=== PATIENT | male | born 1960 | race Caucasian/White ===

== ENCOUNTER → 2017-08-16 | Outpatient (CLI) | payer MEDICAID | END | disposition home or self-care (01) | LOC: CFH 12:10 | PROVIDERS: ATTEND Nurse Practitioner | DX: M51.24 Other intervertebral disc displacement, thoracic region (principal); M51.34 Other intervertebral disc degeneration, thoracic region | CPT/HCPCS: 72146 ==

== ENCOUNTER → 2017-08-30 | Outpatient (CLI) | payer MEDICAID ==
[~2017-08-30] MED LIST: GADOBUTROL 10 MMOL/10 ML PFS ONE
== END | disposition home or self-care (01) ==
LOC: CFH 07:48
PROVIDERS: ATTEND Nurse Practitioner
DX: M54.6 Pain in thoracic spine (principal)
CPT/HCPCS: 72147; A9585

== ENCOUNTER → 2017-10-02 | Outpatient (CLI) | payer MEDICAID | END | disposition home or self-care (01) | LOC: CFH 13:49 | PROVIDERS: ATTEND Nurse Practitioner | DX: M16.0 Bilateral primary osteoarthritis of hip (principal) | CPT/HCPCS: 73523 ==

== ENCOUNTER → 2018-10-15 | Outpatient (CLI) | payer MEDICAID | END | disposition home or self-care (01) | LOC: CFH 12:59 | PROVIDERS: ATTEND Nurse Practitioner | DX: G93.89 Other specified disorders of brain (principal); J34.1 Cyst and mucocele of nose and nasal sinus | CPT/HCPCS: 70551 ==

== ENCOUNTER 2020-03-12 14:19 | Emergency (ER) | payer MEDICAID ==
[~2020-03-12] VITALS: Ht 175.3 cm; Wt 115.1 kg
[2020-03-12] MEDS ORDERED: OMNIPAQUE 350 MG/ML, 100ML BOTTLE ONE (20:00)
--- NOTE | 2020-03-12 20:10 | NUR ---
PT CAME IN CO OF LEFT SHOULDER AND ABD PAIN AFTER FALLING OFF THE BACK OF HIS TRUCK ABOUT "4.5 FEET HIGH" HE SAID. X RAYS COMPELTE. PT TO CT AT THIS TIME
[2020-03-12 20:15] LABS: BASOPHILS % (AUTO) 1 % (0-1); EOSINOPHILS % (AUTO) 3 % (1-7); LYMPHOCYTES % (AUTO) 36 % (22-44); MEAN CORPUSCULAR HEMOGLOBIN 30.9 pg (27.5-34.5); MEAN CORPUSCULAR HGB CONC 33.6 g/dL (33.2-36.2); MEAN PLATELET VOLUME 7.8 fL (7.4-10.4); MONOCYTES % (AUTO) 10 % (2-9); NEUTROPHILS % (AUTO) 50 % (42-75); PLATELET COUNT 220 x10^3/uL (130-400); RED BLOOD COUNT 4.96 x10^6/uL (4.38-5.82); RED CELL DISTRIBUTION WIDTH 13.2 % (9.4-14.8)
[2020-03-12 20:22] LABS: ALANINE AMINOTRANSFERASE 62 U/L (12-78); ALBUMIN 4.1 g/dL (3.4-5.0); ANION GAP 3 mmol/L (5-15); CALCIUM 8.8 mg/dL (8.5-10.1); CHLORIDE 110 mmol/L (98-107); CREATININE 0.86 mg/dL (0.7-1.3)
[2020-03-12 20:24] LABS: ALKALINE PHOSPHATASE 114 U/L (45-117); BILIRUBIN,TOTAL 0.6 mg/dL (0.2-1.0); TOTAL PROTEIN 7.4 g/dL (6.4-8.2)
[2020-03-12 20:25] LABS: MD NO
[2020-03-12 20:58] VITALS: BP 134/76
--- NOTE | 2020-03-12 21:02 | NUR ---
Patient given discharge instructions and they have confirmed that they understand the instructions. Patient ambulatory with steady gait. nad, denies additional questions or needs, no personal belongings left in room after dc
== END 2020-03-12 21:04 | disposition home or self-care (01) ==
LOC: ED 19:00
DX: S29.012A Strain of muscle and tendon of back wall of thorax, initial encounter (principal); S16.1XXA Strain of muscle, fascia and tendon at neck level, initial encounter; S40.012A Contusion of left shoulder, initial encounter; W18.30XA Fall on same level, unspecified, initial encounter; Y93.89 Activity, other specified; Y92.89 Other specified places as the place of occurrence of the external cause; Y99.8 Other external cause status
CPT/HCPCS: 36415; 71101; 71260; 72125; 73030; 74177; 80053; 85025; 99285; Q9967

== ENCOUNTER 2020-06-07 05:55 | Emergency (ER) | payer MEDICAID ==
[~2020-06-07] VITALS: Ht 175.3 cm; Wt 105.5 kg
--- NOTE | 2020-06-07 06:00 | NUR ---
patient restless in bed, states his R thigh hurts. call bazan in reach. safety maintained. will continue to monitor.
[2020-06-07] MEDS ORDERED: DIAZEPAM 5 MG/ML, 2ML IVPush ONE (06:30)
[2020-06-07] MEDS ORDERED: KETOROLAC 30 MG/1 ML IVPush ONE (06:30)
[2020-06-07] MEDS ORDERED: DEXAMETHASONE 4 MG/ML, 1ML IVPush ONE (06:30)
[2020-06-07] MEDS ORDERED: KETOROLAC 30 MG/1 ML ONE (06:31)
[2020-06-07] MEDS ORDERED: DEXAMETHASONE 4 MG/ML, 1ML ONE (06:31)
[2020-06-07] MEDS ORDERED: DIAZEPAM 5 MG/ML, 2ML ONE (06:31)
--- NOTE | 2020-06-07 07:00 | NUR ---
report given to Malinda MONTANEZ
--- NOTE | 2020-06-07 07:15 | NUR ---
PT RESTING IN BED. VSS. UPDATED ON PLAN OF CARE.
[2020-06-07] MEDS ORDERED: HYDROcodone/APAP 5/325 TABLET PO ONE (08:00)
[2020-06-07 08:14] VITALS: BP 149/89
[2020-06-07] MEDS ORDERED: HYDROcodone/APAP 5/325 TABLET ONE (08:16)
== END 2020-06-07 08:29 | disposition home or self-care (01) ==
LOC: ED 08:18
DX: M54.5 Low back pain (principal); M79.671 Pain in right foot; M54.16 Radiculopathy, lumbar region; Z88.0 Allergy status to penicillin
CPT/HCPCS: 72131; 96374; 96375; 99284; J1100; J1885; J3360

== ENCOUNTER → 2020-12-05 | Outpatient (CLI) | payer MEDICAID ==
[~2020-12-05] MED LIST changes: -GADOBUTROL 10 MMOL/10 ML PFS ONE; +OMNIPAQUE 350 MG/ML, 100ML BOTTLE ONE
== END | disposition home or self-care (01) ==
LOC: RAD 09:24
PROVIDERS: ATTEND Nurse Practitioner
DX: R10.12 Left upper quadrant pain (principal); M47.816 Spondylosis without myelopathy or radiculopathy, lumbar region
CPT/HCPCS: 74160; Q9967